=== PATIENT | female | born 1980 | race Caucasian/White ===

== ENCOUNTER 2019-08-26 09:07 | Emergency (ER) | payer MEDICAID, OTHER ==
[2019-08-26 09:40] VITALS: RESP 16
[2019-08-26] MEDS ORDERED: SODIUM CHLORIDE 0.9% 1,000 ML IV ONE (10:24)
[2019-08-26 10:54] LABS: Basophils # (A) 0.1 k/uL (0-0.2); Basophils % (A) 1 %; Eosinophils # (A) 0.3 k/uL (0-0.7); Eosinophils % (A) 4 %; HCT 48.3 % (34.0-46.0); HGB 16.2 gm/dL (11.4-16.0); Lymphocytes # (A) 1.9 k/uL (1.0-4.8); Lymphocytes % (A) 28 %; MCH 30.1 pg (25.0-35.0); MCHC 33.5 g/dL (31.0-37.0); MCV 89.7 fL (80.0-100.0); Mean Platelet Volume 7.1; Monocytes # (A) 0.2 k/uL (0-1.0); Monocytes % (A) 3 %; Neutrophils # (A) 4.1 k/uL (1.3-7.7); Neutrophils % (A) 62 %; Platelet Count 270 k/uL (150-450); RBC 5.38 m/uL (3.80-5.40); RDW 12.3 % (11.5-15.5); WBC 6.7 k/uL (3.8-10.6)
[2019-08-26 11:00] LABS: HCG,Qualitative Serum Not Detected
[2019-08-26 11:09] LABS: ALT 19 U/L (9-52); AST 29 U/L (14-36); African American GFR (CKD) >90 (>60 ml/min/1.73 sqM); Alkaline Phosphatase 56 U/L (38-126); Anion Gap 11 mmol/L; Blood Urea Nitrogen 10 mg/dL (7-17); Carbon Dioxide 29 mmol/L (22-30); Chloride 103 mmol/L (98-107); Glucose 73 mg/dL (74-99); Potassium 4.5 mmol/L (3.5-5.1); Sodium 143 mmol/L (137-145); Total Bilirubin 0.6 mg/dL (0.2-1.3); Total Protein 8.5 g/dL (6.3-8.2)
[2019-08-26] MEDS ORDERED: MECLIZINE 12.5 MG TAB PO STA (11:13)
--- NOTE | 2019-08-26 11:20 | ED ---
Headache HPI - General Chief Complaint: Headache Stated Complaint: headache x2 wks Time Seen by Provider: 08/26/19 10:02 Mode of arrival: ambulatory Limitations: no limitations - History of Present Illness Initial Comments: 39-year-old female with history of vertigo with previous myringotomy of the right ear, she states that she has had dizziness and head pressure for the past 2 weeks, she states she is unsure if it is related to her vertigo or not. She states that the symptoms are constant. Patient denies any neck pain she states she does have some sensitivity. She states THAT yesterday she felt like her vision was blurred for a few seconds. Patient states that her vision currently is not blurry. She denies any vomiting. Patient denies any head injury fever or neck stiffness patient denies any family history of aneurysm or personal history. Patient denies any sudden onset of headache. Patient states is less pain and more a pressure. Patient denies any ear pain or hearing loss. Patient denies any ringing in the ears. Patient states she was worried about , took our her mirena and had an HCG test Friday which was negative. Patient states she wanted to make sure these symptoms are not due to and requesting serum HCG. Patient denies DM, HTN, cardiac history, chest pain, shortness of breath, leg swelling, history of DVT/PE or clotting disorders, denies history of cancer, neck trauma, recent chiropractic car, fevers or URI symptoms, weakness or sensation deficits of the UE or LE, speech changes, loss of vision, diplopia. Patient does however admit to chronic occasional pain in the right ear. Remaining ROS (-). Upon arrival patient appears well no signs of acute distress, nontoxic appearance. - Related Data Home Medications Medication Instructions Recorded Confirmed Aspirin/Acetaminophen/Caffeine 2 tab PO Q4H PRN 08/26/19 08/26/19 [Excedrin Migraine Caplet] Previous Rx's Medication Instructions Recorded Amoxicillin 500 mg PO Q12HR 7 Days #14 cap 08/26/19 Meclizine HCl 25 mg PO DAILY 7 Days #7 tab.chew 08/26/19 Allergies Allergy/AdvReac Type Severity Reaction Status Date / Time No Known Allergies Allergy Verified 08/26/19 10:02 Review of Systems ROS Statement: Those systems with pertinent positive or pertinent negative responses have been documented in the HPI. ROS Other: All systems not noted in ROS Statement are negative. Past Medical History Past Medical History: No Reported History History of Any Multi-Drug Resistant Organisms: None Reported Past Surgical History: No Surgical Hx Reported Past Psychological History: No Psychological Hx Reported Smoking Status: Never smoker Past Alcohol Use History: None Reported Past Drug Use History: None Reported General Exam - General Exam Comments Initial Comments: General: The patient is awake and alert, in no distress, and does not appear acutely ill. Eye: +3 mm pupils are equal, round and reactive to light, extra-ocular movements are intact. No nystagmus. There is normal conjunctiva bilaterally. No signs of icterus. No appreciated protective postures/grimacing with flashlight test-no obvious photophobia Ears, nose, mouth and throat: There are moist mucous membranes and no oral lesions. Significant sclerosis and small amount of fluid behind the right tympanic membrane. No evidence of erythema drainage or swelling of the external auditory canal. It has to palpation of the mastoid. The pulling of the auricle. Patient has sclerosis of the left tympanic membrane. No evidence of fluid. Neck: The neck is supple, there is no tenderness or JVD. Cardiovascular: There is a regular rate and rhythm. No murmur, rub or gallop is appreciated. Respiratory: Lungs are clear to auscultation, respirations are non-labored, breath sounds are equal. No wheezes, stridor, rales, or rhonchi. Gastrointestinal: Soft, non-distended, non-tender abdomen without masses or organomegaly noted. There is no rebound or guarding present. Musculoskeletal: Normal ROM, no tenderness. Strength 5/5. Sensation intact. Radial pulses equal bilaterally 2+. Neurological: A&O x 3. CN II-XII intact, memory intact to immediately, intermediate and longterm recall. Able to follow simple verbal. Able to name a common object (pen). High quality, labial (pa) and lingual (la) speech. Low quality posterior pharynx/larynx (ga) voice sounds. Able to express general knowledge. No hemineglect or inattention noted. Finger agnosia (-) and spatially oriented. Light touch sensation present over the face, chest, abdomen, back, UE bilaterally, and LE bilaterally. Able to localize point during point localization b/l and extinction. No visible bulk atrophy, hypertrophy, fasciculations, or myoclonus of the UE or LE b/l. Full PROM in UE and LE b/l. Bilateral muscle strength 5/5 for the following muscles: deltoid, biceps, tri ceps, brachioradialis, wrist extensors/flexor, hip flexor, hip abductors/adductors, hamstrings, quadriceps, feet dorsiflexors/plantar flexors. Finger to nose, finger to the examiners finger, and heel to hernandez coordinated and accurate b/l. Coordinated and even demonstration of hand flip, finger to th umb, and toe tap b/l.. Gait is coordinated and even in stride with tandem walk. Maintains balance with monopedal stance. (-) Romberg. (-) pronator drift. No nuchal rigidity. Skin: Skin is warm and dry and no rashes or lesions are noted. Psychiatric: Cooperative, appropriate mood & affect, normal judgment. Limitations: no limitations Course Vital Signs 08/26/19 08/26/19 08/26/19 09:38 11:40 13:18 Temperature 97.7 F 98.1 F Pulse Rate 82 67 65 Respiratory 16 16 16 Rate Blood Pressure 119/83 108/77 104/78 O2 Sat by Pulse 100 98 98 Oximetry Medical Decision Making - Medical Decision Making 39-year-old feel presents emergency department for dizziness, head pressure. Patient has history of vertigo as well as chronic in her ear disease previous myringotomy. Patient does appear to have fluid of the right ear appears to os however I'm not familiar with patient's baseline examination. There is significant sclerosis of the tympanic membrane. Patient does admit to intermittent right ear pain which has been chronic. Patient has no history of fevers. She has not any meningeal irritation signs. Patient has no focal deficits or cerebellar signs such as ataxia. Finger to nose, heel to hernandez are very smooth and coordinated as well as patient's gait. Patient has no signs of nystagmus on examination. Cannot not induced. Patient was given meclizine and Valium, she states she has decrease in her dizziness. Patient was given Toradol and states he had pressure has subsided. EKG no acute findings. No complaints of chest pain or palpitations. Patient appears well and nontoxic. Patient be started on amoxicillin and given ear examination findings as well as meclizine. I recommend patient follow-up with ENT. As well as her [facility] care provider. Patient does have associated ENT care within the [facility] especially given the patient to call her physician today to schedule an appointment. Return parameters were discussed in detail length with patient who verbalizes understanding patient was discharged appearing well. I discussed the case maintained provider Dr. Rios at this time we do feel patient is stable for discharge, she is agreeable and prefers discharge at this time. - Lab Data Result diagrams: 08/26/19 10:28 08/26/19 10:28 Lab Results 08/26/19 08/26/19 Range/Units 10:28 10:28 WBC 6.7 (3.8-10.6) k/uL RBC 5.38 (3.80-5.40) m/uL Hgb 16.2 H (11.4-16.0) gm/dL Hct 48.3 H (34.0-46.0) % MCV 89.7 (80.0-100.0) fL MCH 30.1 (25.0-35.0) pg MCHC 33.5 (31.0-37.0) g/dL RDW 12.3 (11.5-15.5) % Plt Count 270 (150-450) k/uL Neutrophils % 62 % Lymphocytes % 28 % Monocytes % 3 % Eosinophils % 4 % Basophils % 1 % Neutrophils # 4.1 (1.3-7.7) k/uL Lymphocytes # 1.9 (1.0-4.8) k/uL Monocytes # 0.2 (0-1.0) k/uL Eosinophils # 0.3 (0-0.7) k/uL Basophils # 0.1 (0-0.2) k/uL Sodium 143 (137-145) mmol/L Potassium 4.5 (3.5-5.1) mmol/L Chloride 103 (98-107) mmol/L Carbon Dioxide 29 (22-30) mmol/L Anion Gap 11 mmol/L BUN 10 (7-17) mg/dL Creatinine 0.81 (0.52-1.04) mg/dL Est GFR (CKD-EPI)AfAm >90 (>60 ml/min/1.73 sqM) Est GFR (CKD-EPI)NonAf >90 (>60 ml/min/1.73 sqM) Glucose 73 L (74-99) mg/dL Calcium 10.0 (8.4-10.2) mg/dL Total Bilirubin 0.6 (0.2-1.3) mg/dL AST 29 (14-36) U/L ALT 19 (9-52) U/L Alkaline Phosphatase 56 (38-126) U/L Total Protein 8.5 H (6.3-8.2) g/dL Albumin 5.0 (3.5-5.0) g/dL HCG, Qual Not Detected - EKG Data EKG Comments: Ventricular rate 70 bpm, MN interval 130 ms, QRS [facility] 82 ms, QT/QTC 384/414 ms. This is normal sinus normal EKG no ST elevation or depression. Or other acute abnormalities noted. EKG personally interpreted as well as reviewed by my attending provider Dr. Jeremy Rios. Disposition Clinical Impression: Vertigo, Pressure in head, Nausea Disposition: HOME SELF-CARE Condition: Good Instructions (If sedation given, give patient instructions): Vertigo (ED) Additional Instructions: Please use medication as discussed. Please follow-up with family doctor in the next 2 days, as well as your ENT. Please return to emergency room if the symptoms increase or worsen or for any other concerns, fever, neck stiffness, difficulty walk, uncoordinated. Prescriptions: Amoxicillin 500 mg PO Q12HR 7 Days #14 cap Meclizine HCl 25 mg PO DAILY 7 Days #7 tab.[email or web address] Is patient prescribed a controlled substance at d/c from ED?: No Referrals: Esther Ashby DO [Primary Care Provider] - 1-2 days Time of Disposition: 13:05
--- NOTE | 2019-08-26 11:25 | CT ---
EXAMINATION TYPE: CT brain wo con DATE OF EXAM: 08/26/2019 COMPARISON: None INDICATION: Headache x 2 weeks DLP: 1099.4 mGycm, Automated exposure control for dose reduction was used. CONTRAST: None CT of the brain is performed utilizing 3 mm thick sections through the posterior fossa and 3 mm thick sections through the remaining calvarium. Study is performed within 24 hours of arrival to the [facility]. No abnormal hyperdensity is present to suggest an acute intracranial hemorrhage. No mass lesion is evident. No acute infarcts are evident. Ventricles and sulci are appropriate for the patient age. Paranasal sinuses and mastoid air cells within the [id number] are clear. IMPRESSIONS: 1. Normal CT Brain
[2019-08-26] MEDS ORDERED: KETOROLAC 30 MG/ML 1 ML VIAL IVP STA (11:26)
[2019-08-26] MEDS ORDERED: ONDANSETRON 4 MG/2 ML VIAL IVP STA (11:27)
[2019-08-26] MEDS ORDERED: DIAZEPAM 5 MG/ML 2 ML INJ IVP STA (11:50)
[2019-08-26 13:19] VITALS: BP 104/78; PULSE 65; TEMP 98.1
== END 2019-08-26 13:19 | disposition home or self-care (01) ==
LOC: EC 09:07
DX: R51 Headache (principal); R11.0 Nausea; R42 Dizziness and giddiness; H73.893 Other specified disorders of tympanic membrane, bilateral; H92.01 Otalgia, right ear; Z96.22 Myringotomy tube(s) status
CPT/HCPCS: 36415; 93005; 80053; 85025; 84703; 70450; 99284; 96374; 96375 ×2; 96361; J3360; J2405; J1885

== ENCOUNTER → 2021-08-21 | Outpatient (CLI) | payer OTHER ==
[2021-08-21 15:03] LABS: Basophils # (A) 0.02 X 10*3/uL (0.00-0.10); Basophils % (A) 0.4 %; Eosinophils # (A) 0.16 X 10*3/uL (0.04-0.35); Eosinophils % (A) 3.3 %; HCT 42.3 % (37.2-46.3); HGB 13.5 g/dL (12.0-15.0); Lymphocytes # (A) 1.84 X 10*3/uL (0.90-5.00); Lymphocytes % (A) 37.6 %; MCH 29.2 pg (27.0-32.0); MCHC 31.9 g/dL (32.0-37.0); MCV 91.4 fL (80.0-97.0); Monocytes # (A) 0.26 X 10*3/uL (0.20-1.00); Monocytes % (A) 5.3 %; Neutrophils % (A) 53.2 %; Platelet Count 236 X 10*3/uL (140-440); RBC 4.63 X 10*6/uL (4.10-5.20); RDW 12.3 % (11.5-14.5); WBC 4.89 X 10*3/uL (4.50-10.00)
[2021-08-21 20:11] LABS: African American GFR (CKD) 92.7 (60.0-200.0); Albumin 4.8 g/dL (3.80-4.90); Albumin/Globulin Ratio 1.92 (1.60-3.17); Anion Gap 10.3 mmol/L (4.00-12.00); BUN/Creat Ratio 18.89 Ratio (12.00-20.00); Calcium 9.2 mg/dL (8.7-10.3); Carbon Dioxide 24.7 mmol/L (21.6-31.8); Chol/HDL Ratio 3.27; Globulin 2.5 g/dL (1.6-3.3); Potassium 4.4 mmol/L (3.5-5.5); Total Bilirubin 0.5 mg/dL (0.3-1.2); Total Protein 7.3 g/dL (6.2-8.2)
== END | disposition home or self-care (01) ==
LOC: LABWHC1 08:23
PROVIDERS: ATTEND Family Medicine
DX: Z00.00 Encounter for general adult medical examination without abnormal findings (principal); Z13.228 Encounter for screening for other metabolic disorders; Z13.220 Encounter for screening for lipoid disorders; Z13.89 Encounter for screening for other disorder
CPT/HCPCS: 36415; 80053; 80061; 85025

== ENCOUNTER → 2022-05-30 | Outpatient (CLI) | payer OTHER ==
[2022-05-30 10:33] LABS: Basophils # (A) 0.03 X 10*3/uL (0.00-0.10); Basophils % (A) 0.4 %; Eosinophils # (A) 0.25 X 10*3/uL (0.04-0.35); Eosinophils % (A) 3.4 %; HCT 42.7 % (37.2-46.3); HGB 13.6 g/dL (12.0-15.0); Immature Grans, Automated 0.1 %; Lymphocytes # (A) 1.52 X 10*3/uL (0.90-5.00); Lymphocytes % (A) 20.6 %; MCH 28.5 pg (27.0-32.0); MCHC 31.9 g/dL (32.0-37.0); MCV 89.5 fL (80.0-97.0); Monocytes % (A) 5.4 %; NRBC Per 100 WBC 0 /100 WBCS (0.0-0.0); Neutrophils # (A) 5.17 X 10*3/uL (1.80-7.70); Neutrophils % (A) 70.1 %; Platelet Count 226 X 10*3/uL (140-440); RBC 4.77 X 10*6/uL (4.10-5.20); RDW 12.5 % (11.5-14.5); WBC 7.38 X 10*3/uL (4.50-10.00)
[2022-05-30 10:48] LABS: African American GFR (CKD) 92.7 (60.0-200.0); Albumin 4.6 g/dL (3.8-4.9); Albumin/Globulin Ratio 1.92 (1.60-3.17); Anion Gap 9.9 mmol/L (10.00-18.00); BUN/Creat Ratio 15.33 Ratio (12.00-20.00); Blood Urea Nitrogen 13.8 mg/dL (9.0-27.0); Calcium 9.4 mg/dL (8.7-10.3); Carbon Dioxide 25.1 mmol/L (20.0-27.5); Globulin 2.4 g/dL (1.6-3.3); Total Bilirubin 0.4 mg/dL (0.30-1.20)
== END | disposition home or self-care (01) ==
LOC: LABWHC1 07:18
PROVIDERS: ATTEND Family Medicine
DX: R11.0 Nausea (principal)
CPT/HCPCS: 36415; 80053; 82150; 83690; 85025

== ENCOUNTER → 2024-12-28 | Outpatient (CLI) | payer OTHER ==
[2024-12-28 15:19] LABS: Basophils # (A) 0.03 X 10*3/uL (0.00-0.10); Basophils % (A) 0.5 %; Eosinophils # (A) 0.17 X 10*3/uL (0.04-0.35); Eosinophils % (A) 2.8 %; HCT 38.7 % (37.2-46.3); HGB 11.8 g/dL (12.0-15.0); Lymphocytes # (A) 2.13 X 10*3/uL (0.90-5.00); Lymphocytes % (A) 34.9 %; MCH 25.1 pg (27.0-32.0); MCHC 30.5 g/dL (32.0-37.0); MCV 82.3 FL (80.0-97.0); Mean Platelet Volume 11.1 FL (9.5-12.2); Monocytes # (A) 0.32 X 10*3/uL (0.20-1.00); Monocytes % (A) 5.2 %; NRBC Per 100 WBC 0 X 10*3/uL (0.00-0.01); Neutrophils # (A) 3.44 X 10*3/uL (1.80-7.70); Neutrophils % (A) 56.4 %; Platelet Count 314 X 10*3/uL (140-440); RDW 14.4 % (11.5-14.5)
[2024-12-28 17:07] LABS: ALT 13 U/L (8-44); AST 20 U/L (13-35); Albumin 4.7 g/dL (3.8-4.9); Albumin/Globulin Ratio 1.68 Ratio (1.60-3.17); Alkaline Phosphatase 58 U/L (41-126); BUN/Creat Ratio 12.89 Ratio (12.00-20.00); Blood Urea Nitrogen 11.6 mg/dL (9.0-27.0); Calcium 9.7 mg/dL (8.7-10.3); Carbon Dioxide 25.1 mmol/L (21.6-31.8); Chloride 102 mmol/L (96-109); Chol/HDL Ratio 3.03 Ratio; Globulin 2.8 g/dL (1.6-3.3); Glucose 91 mg/dL (70-110); LDL Cholesterol,Calculated 108.4 mg/dL (0.0-131.0); Potassium 4.7 mmol/L (3.5-5.5); Sodium 137 mmol/L (135-145); Total Bilirubin 0.4 mg/dL (0.3-1.2); Total Protein 7.5 g/dL (6.2-8.2); VLDL Calculation 12.78 mg/dL (5.00-40.00)
== END | disposition home or self-care (01) ==
LOC: LABWHC1 09:36
PROVIDERS: ATTEND Family Medicine
DX: Z13.89 Encounter for screening for other disorder (principal); Z13.228 Encounter for screening for other metabolic disorders; Z13.220 Encounter for screening for lipoid disorders
CPT/HCPCS: 36415; 80053; 80061; 85025